=== PATIENT | male | born 1945 | race Caucasian/White ===

== ENCOUNTER → 2018-04-22 | Outpatient (CLI) | payer OTHER, MEDICARE ==
[2018-04-22 14:21] LABS: BUN 27 mg/dl (7-24); CHLORIDE 108 mmol/L (98-107); CREATININE 1.09 mg/dL (0.70-1.30); POTASSIUM 5.5 mmol/L (3.5-5.1); SODIUM 142 mmol/L (136-145)
== END | disposition home or self-care (01) ==
LOC: LAB 13:38
PROVIDERS: Internal Medicine
DX: E87.5 Hyperkalemia (principal)

== ENCOUNTER → 2019-01-21 | Outpatient (CLI) | payer OTHER | END | disposition home or self-care (01) | LOC: LAB 10:57 | DX: E87.5 Hyperkalemia (principal) ==